=== PATIENT | female | born 1955 | race Caucasian/White ===

== ENCOUNTER 2023-02-10 09:21 | Emergency (ER) | payer MEDICARE, OTHER, SELFPAY ==
[2023-02-10 09:37] VITALS: BP 135/72; PULSE 81; RESP 16; TEMP 36.8; O2SAT 100
--- NOTE | 2023-02-10 09:53 | ED.GENADULT ---
HPI - General Adult General Stated complaint: swollen neck Source: patient and RN notes reviewed History of Present Illness HPI narrative: 67 yo F presents to urgent care with at side. Pt states she has a new swelling to her anterior neck. Pt states she first noticed this 3 weeks ago. Pt denies any pain, dsyphagia, trouble breathing, fevers, chills, or other symptoms. Pt states she does not have a PCP but has an appt with a new one in 3 months. Related Data Home Medications Medication Instructions Recorded Confirmed atenolol 50 mg tablet 50 mg PO DAILY 02/10/23 02/10/23 Allergies Allergy/AdvReac Type Severity Reaction Status Date / Time No Known Allergies Allergy Unverified 02/10/23 10:24 Review of Systems Review of Systems: CONSTITUTIONAL: Denies fever, chills, or sweats. EYES: Denies visual changes, redness, or discharge. ENT: Denies otalgia and sore throat NECK: area of swelling to anterior neck CARDIOVASCULAR: Denies chest pain, palpitations, or edema. RESPIRATORY: Denies cough or dyspnea. GASTROINTESTINAL: Denies abdominal pain, nausea, vomiting, or diarrhea. GENITOURINARY: Denies dysuria or hematuria. SKIN: Denies rash or itching. MUSCULOSKELETAL: Denies back pain, joint pain, or myalgia. NEUROLOGIC: Denies headache, numbness, or weakness. Pertinent positives per HPI. PMFSH Comments At the time of my signature, I reviewed and agree with the nursing past medical, surgical, social, and family history. There is no relevant family history pertinent to the patient complaint. Exam Narrative: GENERAL: This is a well-nourished, well-developed patient, in no apparent distress. HEAD: normocephalic, atraumatic. EYES: PERRL. Sclera clear/white. Vision is grossly intact. EARS: External ears normal, auditory canals clear and without drainage, TMs normal without perforation. Hearing grossly intact. NOSE: External nose normal with no obvious nasal discharge, nares without redness, no rhinorrhea. THROAT: Mucous membranes moist, posterior pharynx clear. NECK: Neck supple, non-tender without lymphadenopathy. Mass approximately 5 cm, noted to anterior/left neck, located just above clavicle. CARDIOVASCULAR: Regular rate and rhythm without murmurs, gallops, or rubs. RESPIRATORY: Clear to auscultation. Breath sounds equal bilaterally. No wheezes, rales, or rhonchi. SKIN: warm, intact with no suspicious lesions or rash, good texture and turgor. NEURO: awake, alert, and oriented to person, place and time. There were no obvious focal neurologic abnormalities. Course Course Level of Care: Express Care Visit Vital Signs Vital signs: Vital Signs Temperature 98.3 F 02/10/23 09:37 Pulse Rate 81 02/10/23 09:37 Respiratory Rate 16 02/10/23 09:37 Blood Pressure 135/72 02/10/23 09:37 Pulse Oximetry 100 02/10/23 09:37 Oxygen Delivery Room Air 02/10/23 09:37 Temperature 98.3 F 02/10/23 09:37 Pulse Rate 81 02/10/23 09:37 Respiratory Rate 16 02/10/23 09:37 Blood Pressure 135/72 02/10/23 09:37 Pulse Oximetry 100 02/10/23 09:37 Oxygen Delivery Room Air 02/10/23 09:37 reviewed. Medical Decision Making MDM Narrative Medical decision making narrative: Follow up with PCP as directed for further evaluation. If you develop any symptoms with difficulty swallowing or breathing, go to the emergency dept. Differential Diagnosis Differential Diagnosis: lymphadenopathy, thyroid mass, goiter Vital Signs Vital Signs: Vital Signs Temperature 98.3 F 02/10/23 09:37 Pulse Rate 81 02/10/23 09:37 Respiratory Rate 16 02/10/23 09:37 Blood Pressure 135/72 02/10/23 09:37 Pulse Oximetry 100 02/10/23 09:37 Oxygen Delivery Room Air 02/10/23 09:37 Temperature 98.3 F 02/10/23 09:37 Pulse Rate 81 02/10/23 09:37 Respiratory Rate 16 02/10/23 09:37 Blood Pressure 135/72 02/10/23 09:37 Pulse Oximetry 100 02/10/23 09:37 Oxygen Delivery Room Air 02/10/23
== END 2023-02-10 10:08 | disposition home or self-care (01) ==
PROVIDERS: Emergency Provider Nurse Practitioner Family
DX: R22.1 Localized swelling, mass and lump, neck (principal); I48.91 Unspecified atrial fibrillation
CPT/HCPCS: 99202; G0463

== ENCOUNTER 2023-02-10 12:39 | Emergency (ER) | payer MEDICARE, OTHER, SELFPAY ==
--- NOTE | ~2023-02-10 | US_ITS ---
EXAMINATION: US thyroid DATE: 02/10/2023 18:03 INDICATION: Goiter. TECHNIQUE: Multiple ultrasound images of the thyroid were obtained. COMPARISON: None. FINDINGS: The right thyroid lobe measures 4.2 x 1.4 x 1.4 cm. The left thyroid lobe measures 5.7 x 3.1 x 2.9 c m. The thyroid isthmus measures 0.8 cm. Heterogeneous thyroid parenchyma. 4.5 cm solid, mixed echogen icity but mostly isoechoic and hyperechoic, wider than tall, smoothly marginated, left lobe and isthm us mass without echogenic foci, but displays increased vascularity (TI-RADS 3). Otherwise, normal vas cular flow is present. IMPRESSION: 4.5 cm left thyroid lobe and isthmus mass, recommend further evaluation with fine-needle aspiration. Reviewed, dictated and finalized at location K. IMPRESSION: 4.5 cm left thyroid lobe and isthmus mass, recommend further evaluation with fi ne-needle aspiration.
[2023-02-10 12:45] VITALS: BP 149/75; PULSE 86; RESP 18; TEMP 37.2; O2SAT 99
[2023-02-10 14:35] LABS: Basophils Percent Auto 0.7 % (0.2-1.2); Eosinophils Percent Auto 0.5 % (0-4.4); Hematocrit 40.8 % (37.0-47.0); Hemoglobin 13.5 g/dL (12.0-15.0); Immature Granulocyte Absolute 0.01 K/mm3 (0.00-0.031); Immature Granulocyte Percent A 0.2 % (0-0.5); Lymphocytes Absolute Auto 1.21 K/mm3 (0.9-3.2); Lymphocytes Percent Auto 27.3 % (18.3-44.2); Mean Corpuscular HGB Conc 33.1 g/dl (32-36); Mean Corpuscular Hemoglobin 31.1 pg (26-34); Mean Platelet Volume 9.7 fl (7.4-10.4); Monocytes Absolute Auto 0.5 K/mm3 (0.1-0.6); Monocytes Percent Auto 11.5 % (2.6-8.5); Neutrophils Absolute Auto 2.7 K/mm3 (1.3-6.7); Neutrophils Percent Auto 59.8 % (45.5-73.1); Platelet Count Result 254 k/mm3 (150-375); Red Blood Count 4.34 M/mm3 (4.2-5.4); Red Cell Distribution Width 14.5 % (11.5-14.5); White Blood Count 4.4 K/mm3 (4.5-10.0)
[2023-02-10 14:48] LABS: Alanine Aminotransferase 24 U/L (6-35); Albumin Level 4.9 g/dL (3.5-5.1); Alkaline Phosphatase 71 U/L (38-126); Anion Gap 6 mmol/L (8-16); Aspartate Amino Transferase 33 U/L (14-36); Bilirubin,Total 1.2 mg/dL (0.2-1.3); Blood Urea Nitrogen 14 mg/dL (7-17); Calcium 9.4 mg/dL (8.4-10.2); Carbon Dioxide 28 mmol/L (22-30); Chloride 106 mmol/L (98-107); Estimated CRCL calculation 84 ml/min; Estimated Glomerular Filt Rate > 60; Glucose 113 mg/dL (65-110); Potassium 4.3 mmol/L (3.4-5.0); Sodium 140 mmol/L (137-145)
[2023-02-10 17:14] VITALS: BP 144/92; PULSE 86; RESP 18; O2SAT 99
--- NOTE | 2023-02-10 17:39 | ED.GENADULT ---
HPI - General Adult General Chief complaint: Unspecified <Emanuel Tejeda PA-C - Last Filed: 02/10/23 21:37> Stated complaint: Throat swelling <Emanuel Tejeda PA-C - Last Filed: 02/10/23 21:37> Time Seen by Provider: 02/10/23 17:13 <Emanuel Tejeda PA-C - Last Filed: 02/10/23 21:37> History of Present Illness HPI narrative: This is a 67-year-old female presents to the ED with neck goiter x2 weeks. She was referred here from her PCP who wanted to expedite her imaging and labs. Patient states that she has had no complaints whatsoever other than the thyroid swelling. Denies shortness of breath, dysphagia, fevers, chills, pain. States she has been in between PCPs and recently saw Dr. Lanier for first appointment. <Emanuel Tejeda PA-C - Last Filed: 02/10/23 21:37> Related Data Home medications: Home Medications Medication Instructions Recorded Confirmed atenolol 50 mg tablet 50 mg PO DAILY 02/10/23 02/10/23 <Emanuel Tejeda PA-C - Last Filed: 02/10/23 21:37> Allergies/adverse reactions: Allergies Allergy/AdvReac Type Severity Reaction Status Date / Time No Known Allergies Allergy Unverified 02/10/23 10:24 <Emanuel Tejeda PA-C - Last Filed: 02/10/23 21:37> Review of Systems Review of Systems: CONSTITUTIONAL: Denies fever, chills, or sweats. EYES: Denies visual changes, redness, or discharge. ENT: Endorses goiter. Denies rhinorrhea, congestion, sore throat, or otalgia. CARDIOVASCULAR: Denies chest pain, palpitations, or edema. RESPIRATORY: Denies cough or dyspnea. GASTROINTESTINAL: Denies abdominal pain, nausea, vomiting, or diarrhea. GENITOURINARY: Denies dysuria or hematuria. SKIN: Denies rash or itching. MUSCULOSKELETAL: Denies back pain, joint pain, or myalgia. NEUROLOGIC: Denies headache, numbness, dizziness, or weakness. PSYCHIATRIC: Denies anxiety or depression. <Emanuel Tejeda PA-C - Last Filed: 02/10/23 21:37> Exam Narrative: GENERAL: Well-appearing, well-nourished, and in no acute distress. HEAD: Normocephalic, atraumatic. EYES: PERRLA and EOMI. ENT: Mild goiter appreciated on exam. Nares clear, no rhinorrhea or epistaxis. Mucous membranes moist. Oropharynx without tonsillar hypertrophy exudate or other lesions. No overlying skin changes, or erythema. Swallowing intact. NECK: Supple. No adenopathy or masses. CHEST: No respiratory distress. Clear to auscultation. No wheezes rales or rhonchi HEART: Regular rate and rhythm. No murmur heard. Normal peripheral pulses. ABDOMEN: Soft, nontender, nondistended, normal active bowel sounds. EXTREMITIES: Normal range of motion. No edema. SKIN: Warm, dry, no rash. NEURO: Alert and oriented x3. No focal deficits. PSYCH: Normal mood and affect. 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 She was stable with enlarge thyroid on exam. US as ordered. US results returned and disposition occurred after I had already complete my shift. <Estefania Rosenbaum MD - Last Filed: 02/11/23 18:03> Vital Signs Vital signs: Vital Signs Temperature 99.0 F 02/10/23 12:45 Pulse Rate 86 02/10/23 12:45 Respiratory Rate 18 02/10/23 12:45 Blood Pressure 149/75 H 02/10/23 12:45 Pulse Oximetry 99 02/10/23 12:45 Oxygen Delivery Room Air 02/10/23 12:45 Temperature 99.0 F 02/10/23 12:45 Pulse Rate 86 02/10/23 17:14 Respiratory Rate 18 02/10/23 17:14 Blood Pressure 144/92 H 02/10/23 17:14 Pulse Oximetry 99 02/10/23 17:14 Oxygen Delivery Room Air 02/10/23 12:45 <Emanuel Tejeda PA-C - Last Filed: 02/10/23 21:37> Vital Signs Temperature 99.0 F 02/10/23 12:45 Pulse Rate 86 03/21/23 12:45 Respiratory Rate 18 02/10/23 12:45 Blood Pressure 149/75 H 02/10/23 12:45 Pulse Oximetry 99 02/10/23 12:45 Oxygen Delivery Room Air 02/10/23 12:45 Temperature 99.0 F 02/10/23 12:45 Pulse Rate 86 0
== END 2023-02-10 18:56 | disposition home or self-care (01) ==
PROVIDERS: General Practice; Emergency Provider Physician Assistant; PCP Emergency Medicine
DX: E04.9 Nontoxic goiter, unspecified (principal); R22.1 Localized swelling, mass and lump, neck
CPT/HCPCS: 36415; 76536; 80053; 84443; 85025; 99284